=== PATIENT | male | born 1995 | race Caucasian/White ===

== ENCOUNTER 2018-10-14 15:23 | Emergency (ER) | payer OTHER ==
[~2018-10-14] VITALS: Ht 182.9 cm; Wt 81.8 kg
[2018-10-14] MEDS ORDERED: IBUPROFEN 800 MG TABLET PO ONE (17:45)
[2018-10-14] MEDS ORDERED: CARBAMIDE PEROXIDE 6.5% 15 ML OTIC SOLUTION AD ONE (18:30)
[2018-10-14 19:46] VITALS: BP 128/70
== END 2018-10-14 19:47 | disposition home or self-care (01) ==
LOC: EMS 15:26
DX: H60.91 Unspecified otitis externa, right ear (principal); H61.21 Impacted cerumen, right ear; R11.0 Nausea; R09.81 Nasal congestion; F17.210 Nicotine dependence, cigarettes, uncomplicated
CPT/HCPCS: 69209